=== PATIENT | male | born 1945 | race African-American/Black ===

== ENCOUNTER 2021-02-12 15:05 | Emergency (ER) | payer OTHER ==
[~2021-02-12] VITALS: Ht 185.4 cm; Wt 136.1 kg
[~2021-02-12 15:05] MED LIST: CLON0.1T; HYDR10TA26; LABE100T4; METF-370; METFORMIN; MINO10TA2; POTA99TA13; SIMV5TAB50; SPIR25TA; TERA1CAP33; TRIA25CA
[2021-02-12 15:20] VITALS: BP 157/50
[2021-02-12 16:40] LABS: Basophils # (auto) 0 10 ^3/uL (0-0.2); Basophils % (auto) 0.4 % (0.0-2.0); Eosinophils # (auto) 0.1 10 ^3/uL (0-0.8); Eosinophils % (auto) 1.3 % (0.0-7.0); Hematocrit 29.8 % (41.0-53.0); Lymphocytes # (auto) 0.7 10 ^3/uL (0.4-5.4); Lymphocytes % (auto) 9.1 % (10.0-50.0); Mean Corpuscular Hemoglobin 30.2 pg (28.0-32.0); Mean Corpuscular Hgb Conc. 33.5 g/dL (32.0-36.0); Mean Corpuscular Volume 90.1 fL (80.0-100.0); Monocytes # (auto) 0.6 10 ^3/uL (0-1.3); Monocytes % (auto) 7.6 % (0.0-12.0); Neutrophils # (auto) 6.3 10 ^3/uL (1.6-8.6); Neutrophils % (auto) 81.6 % (37.0-80.0); Red Cell Distribution Width 14.7 % (11.8-14.3); White Blood Cell 7.7 10^3/uL (4.4-10.8)
[2021-02-12 17:00] LABS: Magnesium 1.9 mg/dL (1.6-2.6)
== END 2021-02-12 18:45 | disposition left against medical advice (07) ==
LOC: EDBD 15:05 → ER 15:13
DX: R55 Syncope and collapse (principal); Z53.21 Procedure and treatment not carried out due to patient leaving prior to being seen by health care provider
CPT/HCPCS: 36415; 70450; 83735; 84484; 85025; 93005

== ENCOUNTER 2021-09-12 01:26 | Inpatient (IN) | payer OTHER ==
[~2021-09-12] VITALS: Ht 185.4 cm; Wt 128.8 kg
[2021-09-12 02:42] LABS: Basophils # (auto) 0 10 ^3/uL (0-0.2); Basophils % (auto) 0.5 % (0.0-2.0); Eosinophils # (auto) 0.1 10 ^3/uL (0-0.8); Eosinophils % (auto) 1.6 % (0.0-7.0); Hematocrit 26.9 % (41.0-53.0); Hemoglobin 9.1 g/dL (13.5-17.5); Lymphocytes # (auto) 0.8 10 ^3/uL (0.4-5.4); Lymphocytes % (auto) 16.3 % (10.0-50.0); Mean Corpuscular Hemoglobin 29.5 pg (28.0-32.0); Mean Corpuscular Volume 86.9 fL (80.0-100.0); Monocytes # (auto) 0.5 10 ^3/uL (0-1.3); Monocytes % (auto) 10.1 % (0.0-12.0); Neutrophils # (auto) 3.5 10 ^3/uL (1.6-8.6); Neutrophils % (auto) 71.5 % (37.0-80.0); Red Cell Distribution Width 17.4 % (11.8-14.3); White Blood Cell 4.9 10^3/uL (4.4-10.8)
[2021-09-12 02:55] LABS: Albumin 3.5 g/dL (3.4-5.0); BUN/Creatinine Ratio 31.2; Calcium 8.9 mg/dL (8.5-10.1)
[2021-09-12 03:01] LABS: Bilirubin, Total 0.6 mg/dL (0.2-1.0); Total Protein 8.4 g/dL (6.4-8.2)
[2021-09-12 03:06] LABS: Potassium 5.7 mmol/L (3.5-5.1)
[2021-09-12 03:08] LABS: INR 1.1 (0.9-1.15); Partial Thromboplastin Time 30.4 sec (23.6-33.0)
[2021-09-12] MEDS ORDERED: FUROSEMIDE 100 MG/10ML VIAL IV ONE (03:15)
[2021-09-12] MEDS ORDERED: SODIUM CHLORIDE 0.9% 1,000 ML IV ONE (03:15)
[2021-09-12 08:39] LABS: Albumin 3.6 g/dL (3.4-5.0); Calcium 9.5 mg/dL (8.5-10.1)
[2021-09-12 08:44] LABS: BUN/Creatinine Ratio 33.8; Total Protein 8.8 g/dL (6.4-8.2)
[2021-09-12 08:51] LABS: Potassium 5.9 mmol/L (3.5-5.1)
[2021-09-12] MEDS ORDERED: FUROSEMIDE 20 MG/2 ML VIAL IV ONE (09:00)
[2021-09-12] MEDS ORDERED: CALCIUM GLUC 1,000mg/50ml-NS 50 ML IV ONE (09:00)
[2021-09-12] MEDS ORDERED: ALBUTEROL SULF 2.5 MG/0.5ML(0.5%) NEB SOLN NEB ONE (09:00)
[2021-09-12] MEDS ORDERED: DEXTROSE (50%) 50ML SYRG IV ONE (09:00)
[2021-09-12] MEDS ORDERED: SODIUM ZIRCONIUM CYCL 10 GM PAK PO ONE (09:00)
[2021-09-12] MEDS ORDERED: SODIUM BICARBONATE 8.4% INJ 50ML SYRINGE IV ONE (09:00)
[2021-09-12] MEDS ORDERED: InsuLIN REG 1unit/0.01ml Soln (100units/ml) IV ONE (09:00)
[2021-09-12] MEDS ORDERED: ONDANSETRON HCL 4 MG/2 ML VIAL IV PRN (10:15)
[2021-09-12] MEDS ORDERED: DEXTROSE (50%) 50ML SYRG IV PRN (10:30)
[2021-09-12 11:06] LABS: Magnesium 2.3 mg/dL (1.6-2.6)
[2021-09-12] MEDS: ACCU-CHEK COMFORT CURVE STRIP VI SCH ×3 (11:30→22:40)
[2021-09-12 13:00] VITALS: BP 104/70
[2021-09-12] MEDS: SODIUM CHLOR 0.9% PF (SALINE LOCK) 10ML VIAL/SYR IV SCH ×2 (13:28→22:40)
[2021-09-12] MEDS: InsuLIN REG 1unit/0.01ml Soln (100units/ml) SC SCH ×3 (13:28→22:48)
[2021-09-12 15:36] VITALS: BP 104/70
[2021-09-12] MEDS ORDERED: LISI2.5T47 PO (16:35)
[2021-09-12 16:55] VITALS: BP 96/57
[2021-09-12 22:00] VITALS: BP 165/58
[2021-09-12] MEDS ORDERED: InsuLIN REG 1unit/0.01ml Soln (100units/ml) SC SCH (22:00)
[2021-09-12] MEDS: HEPARIN SODIUM (PORCINE) 5000 UNITS/ML 1ML VIAL SC SCH (22:53)
[2021-09-12] MEDS: hydrALAZINE HCL 20 MG/ML VL IV PRN (22:55)
[2021-09-13 05:00] VITALS: BP 153/64
[2021-09-13] MEDS: SODIUM CHLOR 0.9% PF (SALINE LOCK) 10ML VIAL/SYR IV SCH (06:11)
[2021-09-13] MEDS: ACCU-CHEK COMFORT CURVE STRIP VI SCH ×2 (06:12→11:30)
[2021-09-13] MEDS: hydrALAZINE HCL 20 MG/ML VL IV PRN (06:21)
[2021-09-13 06:28] LABS: Basophils # (auto) 0 10 ^3/uL (0-0.2); Basophils % (auto) 0.5 % (0.0-2.0); Eosinophils # (auto) 0.1 10 ^3/uL (0-0.8); Eosinophils % (auto) 1.3 % (0.0-7.0); Hematocrit 30.8 % (41.0-53.0); Hemoglobin 10.9 g/dL (13.5-17.5); Lymphocytes % (auto) 13.5 % (10.0-50.0); Mean Corpuscular Hemoglobin 30.3 pg (28.0-32.0); Mean Corpuscular Hgb Conc. 35.5 g/dL (32.0-36.0); Mean Corpuscular Volume 85.2 fL (80.0-100.0); Monocytes # (auto) 0.7 10 ^3/uL (0-1.3); Monocytes % (auto) 9.2 % (0.0-12.0); Neutrophils # (auto) 5.4 10 ^3/uL (1.6-8.6); Neutrophils % (auto) 75.5 % (37.0-80.0); Nucleated Red Blood Cells % 0.1 %; Red Blood Cells 3.62 10^6/uL (4.5-5.90); Red Cell Distribution Width 16.9 % (11.8-14.3); White Blood Cell 7.1 10^3/uL (4.4-10.8)
[2021-09-13] MEDS: InsuLIN REG 1unit/0.01ml Soln (100units/ml) SC SCH ×2 (06:35→11:30)
[2021-09-13 06:37] LABS: Potassium 5.2 mmol/L (3.5-5.1)
[2021-09-13 06:54] LABS: Albumin 3.8 g/dL (3.4-5.0); BUN/Creatinine Ratio 37.3; Bilirubin, Total 0.9 mg/dL (0.2-1.0); Calcium 10.1 mg/dL (8.5-10.1); Total Protein 9.5 g/dL (6.4-8.2)
[2021-09-13 08:00] VITALS: BP 134/59
[2021-09-13 09:00] VITALS: BP 134/59
[2021-09-13] MEDS: HEPARIN SODIUM (PORCINE) 5000 UNITS/ML 1ML VIAL SC SCH (10:36)
[2021-09-13] MEDS ORDERED: SODIUM ZIRCONIUM CYCL 10 GM PAK PO ONE (11:30)
[2021-09-13] MEDS ORDERED: CALCIUM CHL 100MG/ML 1,000 MG in D5W 5% 100 ML IV ONE (11:30)
[2021-09-13] MEDS ORDERED: FUROSEMIDE 40 MG/4 ML VIAL IV ONE (11:30)
[2021-09-13] MEDS ORDERED: ATORVASTATIN 20 MG TAB PO ONE (11:45)
[2021-09-13] MEDS ORDERED: cloNIDine HCL 0.1 MG TAB PO SCH ×2 (12:00→22:00)
[2021-09-13 13:00] VITALS: BP 139/58
[2021-09-13] MEDS ORDERED: hydrALAZINE HCL 10 MG TAB PO SCH (14:00)
[2021-09-13] MEDS ORDERED: SODIUM ZIRCONIUM CYCL 10 GM PAK PO SCH (14:45)
[2021-09-13] MEDS ORDERED: LABETALOL HCL 200 MG TAB PO SCH (22:00)
[2021-09-14] MEDS ORDERED: LISINOPRIL 5 MG TAB PO SCH (10:00)
[2021-09-14] MEDS ORDERED: HCTZ 25 MG TAB PO SCH (10:00)
[2021-09-14] MEDS ORDERED: MINOXIDIL 10 MG TAB PO SCH (10:00)
[2021-09-14] MEDS ORDERED: TERAZOSIN HCL 1 MG CAP PO SCH (10:00)
[2021-09-14] MEDS ORDERED: SPIRONOLACTONE 25 MG TAB PO SCH (10:00)
== END 2021-09-13 15:30 | disposition left against medical advice (07) | DRG 291 ==
LOC: ER 01:26 → EDBD 01:26 → TELE 10:03 → TELE-CENTR 12:32
PROVIDERS: ADMIT Registered Nurse; ATTEND Registered Nurse
DX: I13.0 Hypertensive heart and chronic kidney disease with heart failure and stage 1 through stage 4 chronic kidney disease, or unspecified chronic kidney disease (principal); I50.33 Acute on chronic diastolic (congestive) heart failure; N17.9 Acute kidney failure, unspecified; E87.5 Hyperkalemia; R55 Syncope and collapse; D69.6 Thrombocytopenia, unspecified; E11.22 Type 2 diabetes mellitus with diabetic chronic kidney disease; E11.65 Type 2 diabetes mellitus with hyperglycemia; E66.01 Morbid (severe) obesity due to excess calories; E78.5 Hyperlipidemia, unspecified; D63.8 Anemia in other chronic diseases classified elsewhere; E78.00 Pure hypercholesterolemia, unspecified; Z20.822 Contact with and (suspected) exposure to COVID-19; R79.89 Other specified abnormal findings of blood chemistry; R00.1 Bradycardia, unspecified; N18.30 Chronic kidney disease, stage 3 unspecified; Z53.29 Procedure and treatment not carried out because of patient's decision for other reasons; Z82.49 Family history of ischemic heart disease and other diseases of the circulatory system; Z83.3 Family history of diabetes mellitus; Z87.891 Personal history of nicotine dependence; Z68.37 Body mass index [BMI] 37.0-37.9, adult
CPT/HCPCS: 36415; 51702; 70450; 71045; 80053; 80061; 82962; 83036; 83735; 83880; 84132; 84443; 84484; 85025; 85610; 85730; 93005; 93306; 93886; 94640; 96361; 96365; 96375; 96376; G0378; J1815; J7060